=== PATIENT | female | born 1990 | race Caucasian/White ===

== ENCOUNTER 2023-02-19 12:33 | Emergency (ER) | payer SELFPAY ==
[2023-02-19] MEDS ORDERED: Lidocaine 1% (PF) 30 ML VIAL ONE (14:10)
[2023-02-19] MEDS ORDERED: Ketorolac Tromethamine 30 MG/ML VIAL ONE (14:10)
[2023-02-19] MEDS ORDERED: Boostrix 0.5 ML (Tdap) VIAL (>/=7 yrs of age) ONE (14:11)
== END 2023-02-19 16:33 | disposition home or self-care (01) ==
LOC: CSHERS 12:33
DX: S62.634B Displaced fracture of distal phalanx of right ring finger, initial encounter for open fracture (principal); I10 Essential (primary) hypertension; Z79.899 Other long term (current) drug therapy; W18.39XA Other fall on same level, initial encounter
CPT/HCPCS: 90715; 96372; J1885; J2001